=== PATIENT | female | born 1995 | race African-American/Black ===

== ENCOUNTER 2017-08-22 10:10 | Emergency (ER) | payer BC ==
[2017-08-22 11:01] LABS: BILIRUBIN,URINE NEGATIVE (NEG); CLARITY,URINE CLEAR; COLOR,URINE AMBER; GLUCOSE,URINE NEGATIVE (NEG); NITRITE,URINE NEGATIVE (NEG); PH,URINE 6.5; PROTEIN,URINE NEGATIVE (NEG-TRACE)
[2017-08-22 11:14] LABS: BACTERIA,URINE FEW /HPF (0-FEW); RBC,URINE 0 /HPF (0-2); SQUAMOUS EPITHELIAL CELL,UR MANY /LPF
[2017-08-22 11:17] LABS: ADD MAN DIFF? NO
[2017-08-22 11:22] LABS: BASO # 0.1 x10^3/uL (0.0-0.2); BASO % 1 % (0-3); EOS # 0.1 x10^3/uL (0.0-0.7); EOS % 1 % (0-3); HEMOGLOBIN 10.1 g/dL (12.0-15.5); LYMPH # 1.9 x10^3/uL (1.0-4.8); LYMPH % 20 % (24-48); MEAN CORPUSCULAR HEMOGLOBIN 31 pg (25-35); MEAN CORPUSCULAR HGB CONC 34 g/dL (31-37); MEAN CORPUSCULAR VOLUME 93 fL (79-100); MONO # 0.5 x10^3/uL (0.0-1.1); MONO % 5 % (0-9); NEUT % 74 % (31-73); PLATELET COUNT 309 x10^3/uL (140-400); RED BLOOD COUNT 3.24 x10^6/uL (3.50-5.40); RED CELL DISTRIBUTION WIDTH 12.8 % (11.5-14.5); WHITE BLOOD COUNT 9.6 x10^3/uL (4.0-11.0)
[2017-08-22 11:26] LABS: ANION GAP 12 (6-14); BLOOD UREA NITROGEN 11 mg/dL (7-20); BUN/CREATININE RATIO 22 (6-20); CARBON DIOXIDE 22 mmol/L (21-32); CHLORIDE 104 mmol/L (98-107); CREATININE 0.5 mg/dL (0.6-1.0); GFR 188.5; GLUCOSE 90 mg/dL (70-99); POTASSIUM 3.5 mmol/L (3.5-5.1); SODIUM 138 mmol/L (136-145)
[2017-08-22 11:32] LABS: ALBUMIN 2.9 g/dL (3.4-5.0); ALBUMIN/GLOBULIN RATIO 0.7 (1.0-1.7); ALK PHOS 52 U/L (46-116); ALT (SGPT) 14 U/L (14-59); AST (SGOT) 14 U/L (15-37); TOTAL BILIRUBIN 0.3 mg/dL (0.2-1.0); TOTAL PROTEIN 7.1 g/dL (6.4-8.2)
== END 2017-08-22 12:17 | disposition home or self-care (01) ==
LOC: ER 10:10
DX: O20.9 Hemorrhage in early pregnancy, unspecified (principal); O99.342 Other mental disorders complicating pregnancy, second trimester; F32.9 Major depressive disorder, single episode, unspecified; Z3A.18 18 weeks gestation of pregnancy; Z91.048 Other nonmedicinal substance allergy status
CPT/HCPCS: 36415; 76805; 76817; 80053; 81001; 85025; 87086; 99285-25

== ENCOUNTER 2017-09-28 18:26 | Emergency (ER) | payer SELFPAY, BC | END 2017-09-28 19:55 | disposition home or self-care (01) | LOC: ER 18:26 | DX: O99.512 Diseases of the respiratory system complicating pregnancy, second trimester (principal); O99.342 Other mental disorders complicating pregnancy, second trimester; J32.0 Chronic maxillary sinusitis; F32.9 Major depressive disorder, single episode, unspecified; Z91.048 Other nonmedicinal substance allergy status; Z3A.21 21 weeks gestation of pregnancy | CPT/HCPCS: 99283 ==

== ENCOUNTER 2017-11-02 10:20 | Observation (INO) | payer OTHER ==
[2017-11-02 10:44] LABS: BILIRUBIN,URINE NEGATIVE (NEG); CLARITY,URINE CLEAR; COLOR,URINE YELLOW; GLUCOSE,URINE NEGATIVE (NEG); NITRITE,URINE NEGATIVE (NEG); PROTEIN,URINE NEGATIVE (NEG-TRACE)
[2017-11-02 10:53] LABS: SQUAMOUS EPITHELIAL CELL,UR MOD /LPF
[2017-11-02 10:54] LABS: BACTERIA,URINE FEW /HPF (0-FEW); RBC,URINE OCC /HPF (0-2)
[2017-11-02] MEDS: HYDROcodone/APAP 5/325MG 1 TAB TABLET PO (11:22)
== END 2017-11-02 11:40 | disposition home or self-care (01) ==
LOC: 3 SO LND 10:20
DX: O26.893 Other specified pregnancy related conditions, third trimester (principal); M54.9 Dorsalgia, unspecified; Z3A.29 29 weeks gestation of pregnancy
CPT/HCPCS: 81001; G0379

== ENCOUNTER → 2017-11-22 | Outpatient (CLI) | payer OTHER | END | disposition home or self-care (01) | LOC: KCIC US 13:17 | DX: O26.843 Uterine size-date discrepancy, third trimester (principal); Z3A.32 32 weeks gestation of pregnancy | CPT/HCPCS: 76805 ==

== ENCOUNTER 2018-05-24 14:51 | Emergency (ER) | payer SELFPAY ==
[~2018-05-24] VITALS: Ht 157.5 cm; Wt 66.7 kg
[~2018-05-24 14:51] MED LIST: AZIT250T6 PO; DOCU-109 PO; FERR325T72 PO; IBUP800T19 PO; OXYC1TAB7 PO
[2018-05-24 15:12] VITALS: BP 121/64
[2018-05-24] MEDS ORDERED: IBUPROFEN 400 MG TABLET. PO ONE (15:30)
[2018-05-24] MEDS ORDERED: ACETAMINOPHEN 500 MG TABLET PO ONE (15:30)
--- NOTE | 2018-05-24 16:06 | PHYS DOC ---
Past Medical History Past Medical History: No Pertinent History, Depression Past Surgical History: Alcohol Use: None Drug Use: None Adult General Chief Complaint Chief Complaint: FEVER HPI HPI Patient is a 23 year old female with history of depression who presents today complaining of fever cough and nasal congestion and body aches and a mild generalized headache that has been going on intermittently for 4 days. Patient denies any chance she is . Denies any nausea vomiting. Denies any abdominal pain. Denies any neck pain, denies any nuchal rigidity. Review of Systems Review of Systems Constitutional: Reports fever and body aches Eyes: Denies change in visual acuity, redness, or eye pain [] HENT: Reports nasal congestion, denies sore throat [] Respiratory: Reports cough, denies shortness of breath [] Cardiovascular: No additional information not addressed in HPI [] GI: Denies abdominal pain, nausea, vomiting, bloody stools or diarrhea [] : Denies dysuria or hematuria [] Musculoskeletal: Denies back pain or joint pain [] Integument: Denies rash or skin lesions [] Neurologic: Reports headache, denies focal weakness or sensory changes [] All other systems were reviewed and found to be within normal limits, except as documented in this note. Current Medications Current Medications Current Medications Medications (Trade) Dose Ordered Sig/[facility] Start Time Stop Time Status Last Admin Dose Admin Acetaminophen (Tylenol) 1,000 mg 1X ONCE 05/24/18 15:30 05/24/18 15:32 DC 05/24/18 15:42 1,000 MG Ibuprofen (Motrin) 800 mg 1X ONCE 05/24/18 15:30 05/24/18 15:32 DC Allergies Allergies Allergies Coded Allergies Type Severity Reaction Last Updated Verified nickel Allergy Intermediate RASH 08/22/17 Yes Physical Exam Physical Exam Constitutional: Well developed, well nourished, no acute distress, non-toxic appearance. [] HENT: Normocephalic, atraumatic, bilateral external ears normal, oropharynx moist, no oral exudates, nose normal. [] Eyes: PERRLA, EOMI, conjunctiva normal, no discharge. [] Neck: Normal range of motion, no tenderness, supple, no stridor. Negative meningeal signs. Cardiovascular:Heart rate regular rhythm, no murmur [] Lungs & Thorax: Bilateral breath sounds clear to auscultation [] Abdomen: Bowel sounds normal, soft, no tenderness, no masses, no pulsatile masses. [] Skin: Warm, dry, no erythema, no rash. [] Back: No tenderness, no CVA tenderness. [] Extremities: No tenderness, no cyanosis, no clubbing, ROM intact, no edema. [] Neurologic: Alert and oriented X 3, normal motor function, normal sensory function, no focal deficits noted. [] Psychologic: Affect normal, judgement normal, mood normal. [] Current Patient Data Vital Signs Vital Signs Date Time Temp Pulse Resp B/P (MAP) Pulse Ox O2 Delivery O2 Flow Rate FiO2 05/24/18 15:12 103.0 119 24 121/64 (83) 100 Room Air 103.0 Lab Values Laboratory Tests Test 05/24/18 15:21 05/24/18 15:40 05/24/18 15:43 Influenza Type A Antigen Negative (NEGATIVE) Influenza Type B Antigen Negative (NEGATIVE) Urine Collection Type Unknown Urine Color Yellow Urine Clarity Clear Urine pH 7.5 Urine Specific [place] 1.025 Urine Protein Negative mg/dL (NEG-TRACE) Urine Glucose (UA) Negative mg/dL (NEG) Urine Ketones (Stick) Negative mg/dL (NEG) Urine Blood Trace (NEG) Urine Nitrite Negative (NEG) Urine Bilirubin Negative (NEG) Urine Urobilinogen Dipstick 4.0 mg/dL (0.2 mg/dL) Urine Leukocyte Esterase Negative (NEG) Urine RBC >40 /HPF (0-2) Urine WBC 0 /HPF (0-4) Urine Squamous Epithelial Cells Many /LPF Urine Bacteria 0 /HPF (0-FEW) Urine Mucus Marked /LPF POC Urine HCG, Qualitative Hcg negative (Negative) EKG EKG [] Radiology/Procedures Radiology/Procedures []PROCEDURE: CHEST PA & LATERAL Chest, PA and Lateral: Technique: PA and lateral views of the chest were obtained. History: Cough. Comparison: None. Findings: The heart and pulmonary vasculature appear within normal limits. The lungs are clear. The pleural margins are clear. Impression: No acute chest process is seen. Electronically signed by: Anjum Cedeno MD (05/24/2018 4:21 PM) [id number] DICTATED and SIGNED BY: ANJUM CEDENO MD DATE: 05/24/18 1618 Course & Med Decision Making Course & Med Decision Making Pertinent Labs and Imaging studies reviewed. (See chart for details) This is a 23-year-old female patient presenting to the ED today complaining of fever cough and nasal congestion and body aches and a headache for 4 days. Temperature 103.1 with a heart rate in the 116s on arrival to the ED, patient has no neck pain, negative meningeal signs. Patient already took ibuprofen, was given Tylenol. Negative influenza A or B. Negative urine analysis, chest x-ray interpreted by radiologist is negative for any acute findings. Patient's symptoms are likely viral. She was instructed to go home rest, push fluids, Tylenol every 4 hours and Motrin every 6 hours. Instructed to follow-up with her own memory care doctor in the course of this week or next week. Provided return precautions and discharged in stable condition. Dragon Disclaimer Dragon Disclaimer This electronic medical record was generated, in whole or in part, using a voice recognition dictation system. Departure Departure Impression: Primary Impression: Fever Additional Impressions: Cough URI (upper respiratory infection) Disposition: 01 HOME, SELF-CARE Condition: STABLE Referrals: GYPSY MCCULLOUGH Jr, MD (PCP) Follow-up with your primary care doctor in one week Patient Instructions: Cough, Child, Fever, Child, Upper Respiratory Infection, Child Additional Instructions: You were evaluated in the emergency room your symptoms are consistent with a viral illness. We highly recommend you take Tylenol every 4 hours, Motrin every 6 hours, rest, push fluids, maintain good hand hygiene and follow-up with your own doctor in the course of this week or next week. Please come back to the emergency room at any point symptoms worsen. Problem Qualifiers Primary Impression: Fever Fever type: unspecified Qualified Codes: R50.9 - Fever, unspecified Additional Impressions: URI (upper respiratory infection) URI type: unspecified URI Qualified Codes: J06.9 - Acute upper respiratory infection, unspecified [employer] May 24, 2018 16:06
[2018-05-24 16:07] LABS: BILIRUBIN,URINE NEGATIVE (NEG); CLARITY,URINE CLEAR; COLOR,URINE YELLOW; NITRITE,URINE NEGATIVE (NEG); PH,URINE 7.5; PROTEIN,URINE NEGATIVE (NEG-TRACE)
[2018-05-24 16:14] LABS: SQUAMOUS EPITHELIAL CELL,UR MANY /LPF
[2018-05-24 16:15] LABS: BACTERIA,URINE 0 /HPF (0-FEW); RBC,URINE >40 /HPF (0-2); WBC,URINE 0 /HPF (0-4)
--- NOTE | 2018-05-24 16:25 | RAD ---
Chest, PA and Lateral: Technique: PA and lateral views of the chest were obtained. History: Cough. Comparison: None. Findings: The heart and pulmonary vasculature appear within normal limits. The lungs are clear. The pleural margins are clear. Impression: No acute chest process is seen. Electronically signed by: Anjum Cedeno MD (05/24/2018 4:21 PM) [id number]
[2018-05-24 16:40] LABS: INFLUENZA A PATIENT NEGATIVE (NEGATIVE); INFLUENZA B PATIENT NEGATIVE (NEGATIVE)
== END 2018-05-24 16:58 | disposition home or self-care (01) ==
LOC: ER 14:51
DX: J06.9 Acute upper respiratory infection, unspecified (principal); F32.9 Major depressive disorder, single episode, unspecified; Z88.8 Allergy status to other drugs, medicaments and biological substances
CPT/HCPCS: 71046; 81001; 81025; 87804; 99284

== ENCOUNTER 2018-12-13 15:26 | Observation (INO) | payer SELFPAY ==
[2018-12-13] MEDS ORDERED: IV RINGERS,LACTATED 1000ML 1,000 ML IV PRN (15:45)
[2018-12-13 16:18] LABS: BARBITURATES NEG (NEG); BENZODIAZEPINES NEG (NEG); CANNABINOIDS NEG (NEG); COCAINE NEG (NEG); METHADONE NEG (NEG); OPIATES NEG (NEG); PHENCYCLIDINE NEG (NEG)
[2018-12-13 16:19] LABS: AMPHETAMINE/METHAMPHETAMINE NEG (NEG)
[2018-12-13 16:31] LABS: BILIRUBIN,URINE NEGATIVE (NEG); CLARITY,URINE CLEAR; COLOR,URINE YELLOW; NITRITE,URINE NEGATIVE (NEG); PROTEIN,URINE NEGATIVE (NEG-TRACE)
[2018-12-13 16:51] LABS: BACTERIA,URINE FEW /HPF (0-FEW); RBC,URINE 0 /HPF (0-2); SQUAMOUS EPITHELIAL CELL,UR OCC /LPF; WBC,URINE OCC /HPF (0-4)
--- NOTE | 2018-12-13 17:22 | RAD ---
PREG MORE THAN OR EQ TO 14 WKS History: Gestational age evaluation, no care Comparison: None. Findings: Multiple sonographic images of the uterus are submitted. There is a single intrauterine fetus in breech presentation. Cervix measured 4.1 cm in length. There is anterior placenta. Amniotic fluid volume is subjectively within normal limits. cardiac activity was demonstrated, 139 bpm. Cisterna magna measures 0.36 cm. There is four-chamber view of heart. Reportedly 2 upper and lower extremities were visualized. stomach was visualized. 2 kidneys were visualized. There is visualization of bladder. There is apparently a midline cord insertion although suboptimally demonstrated on this exam. There is reportedly a three-vessel cord also suboptimally demonstrated on submitted images. No obvious abnormality is demonstrated of the visualized spine. Maternal adnexal regions are not demonstrated. Biometry data are as follows: Biparietal diameter 5.4 cm corresponds with 22 weeks 3 days Head circumference 20.62 cm corresponds with 22 weeks 5 days Abdominal circumference 18.5 cm corresponds with 23 weeks 2 days Femur length 3.87 cm corresponds with 22 weeks 3 days Adjusted ultrasound age 22 weeks 5 days with estimated delivery date by ultrasound 04/13/2019 LMP age 22 weeks 4 days with estimated delivery date of 04/14/2019 Estimated weight 542 g +/- 80 g, corresponds with 43rd percentile HC/AC ratio within normal limits 1.11 Impression: 1. There is a single viable intrauterine fetus in breech presentation, adjusted ultrasound age 22 weeks 5 days with estimated delivery date of 04/13/2019. Electronically signed by: Jono Sharma MD (12/13/2018 5:19 PM) [facility]
== END 2018-12-13 17:00 | disposition home or self-care (01) ==
LOC: 3 SO LND 15:26
PROVIDERS: ADMIT Obstetrics & Gynecology; ATTEND Obstetrics & Gynecology
DX: O26.852 Spotting complicating pregnancy, second trimester (principal); Z3A.22 22 weeks gestation of pregnancy
CPT/HCPCS: 76805; 80307; 81001; G0378; G0379

== ENCOUNTER 2019-02-20 00:18 | Inpatient (IN) | payer MEDICAID ==
[2019-02-20] VITALS (7 sets, daily range): BP systolic 97–115; BP diastolic 47–63
[~2019-02-20] VITALS: Ht 157.5 cm; Wt 86.2 kg
[2019-02-20] MEDS ORDERED: ACETAMINOPHEN 500 MG TABLET PO PRN (00:30)
[2019-02-20] MEDS ORDERED: ACETAMINOPHEN 325 MG TABLET. PO PRN ×2 (00:30→02:45)
[2019-02-20 00:45] LABS: BILIRUBIN,URINE NEGATIVE (NEG); CLARITY,URINE CLEAR; COLOR,URINE YELLOW; NITRITE,URINE NEGATIVE (NEG); PROTEIN,URINE 30 mg/dL (NEG-TRACE)
[2019-02-20 00:52] LABS: BACTERIA,URINE 0 /HPF (0-FEW); BARBITURATES NEG (NEG); BENZODIAZEPINES NEG (NEG); CANNABINOIDS NEG (NEG); COCAINE NEG (NEG); METHADONE NEG (NEG); OPIATES NEG (NEG); PHENCYCLIDINE NEG (NEG); RBC,URINE TNTC /HPF (0-2); SQUAMOUS EPITHELIAL CELL,UR FEW /LPF
[2019-02-20 00:53] LABS: AMPHETAMINE/METHAMPHETAMINE NEG (NEG)
[2019-02-20] MEDS ORDERED: MAGNESIUM SULFATE 4GM 100 ML IV ONE (02:00)
--- NOTE | 2019-02-20 02:05 | RAD ---
Obstetrical ultrasound limited HISTORY: female with bleeding. Images provided demonstrate an anterior placenta. Structure labeled cervix measured with a length of 5.5 cm although it is uncertain how much of this is the cervix. There is lobulation of the inferior margin of the placenta which appears to cover the cervical internal os based on the annotations for what is labeled as the cervix. Intrauterine fetus with breech position present. heart rate 149 bpm. Estimated sonographic gestational age 34 weeks 2 days and date of delivery April 01, 2019. Biparietal diameter 9.05 cm, gestational age 36 weeks 5 days. Head circumference 31.47 cm, gestational age 35 weeks 2 days. Abdominal circumference 28.26 cm, gestational age 32 weeks 2 days. Femur length 6.30 cm, gestational age 32 weeks 4 days. Head/abdominal circumference ratio 1.1. Estimated weight 2110 g. Amniotic fluid index 5.9 cm. IMPRESSION: Single living intrauterine fetus breech position estimated sonographic gestational age of 34 weeks 2 days. Anterior placenta, there is a suspected placenta previa covering the cervical internal os as described above. See discussion above. Electronically signed by: Jesús Barakat MD (02/20/2019 2:03 AM) [facility]
[2019-02-20] MEDS: IV RINGERS,LACTATED 1000ML 1,000 ML IV SCH ×4 (02:06→23:59)
[2019-02-20 02:07] LABS: BASO % 0 % (0-3); EOS # 0.1 x10^3/uL (0.0-0.7); EOS % 1 % (0-3); HEMATOCRIT 27.9 % (36.0-47.0); LYMPH # 2.8 x10^3/uL (1.0-4.8); LYMPH % 26 % (24-48); MEAN CORPUSCULAR HEMOGLOBIN 26 pg (25-35); MEAN CORPUSCULAR HGB CONC 32 g/dL (31-37); MEAN CORPUSCULAR VOLUME 80 fL (79-100); MONO # 0.7 x10^3/uL (0.0-1.1); MONO % 7 % (0-9); NEUT # 7.1 x10^3/uL (1.8-7.7); NEUT % 67 % (31-73); PLATELET COUNT 283 x10^3/uL (140-400); RED BLOOD COUNT 3.48 x10^6/uL (3.50-5.40); RED CELL DISTRIBUTION WIDTH 14.9 % (11.5-14.5); WHITE BLOOD COUNT 10.7 x10^3/uL (4.0-11.0)
[2019-02-20] MEDS ORDERED: BETAMET ACET&NA PHOS 30 MG/5 ML VIAL. IM ONE (02:30)
[2019-02-20] MEDS ORDERED: PROPOFOL 20 ML IV ONE (02:34)
[2019-02-20] MEDS ORDERED: SUCCINYLCHOLINE 200 MG/10 ML VIAL. ONE (02:34)
--- NOTE | 2019-02-20 02:35 | PDOC1 ---
OB - History Hx of Present Care: None Ultrasounds: Abnormal US findings (placenta previa) Obstetrical Complications: Other (placenta previa with active bleeding) Medical Complications: Other (anemia) Past Family/Social History * Past Medical, Surgical, Family and Obstetric Histories reviewed from chart. Blood Type: Unknown Rubella: Unknown RPR/VDRL: Unknown GBS Status: Unknown HBsAG: Unknown OB - Chief Complaint & HPI Date of Admission: Date of Admission: Feb 20, 2019 at 00:18 Chief Complaint/History : 3 Para: 2 EGA: 32 Reason for admission: vaginal bleeding, other (placenta previa) Indication for : desires repeat Admission Nurse Assessment Rev: Yes OB - Admission Exam Physical Exam HEENT: Normal Heart: Regular Rate Lungs: Clear Abdomen: Gravid, Non tender, Soft Extremities: Edema Reflexes: Normal Cervical Dilatation: None Effacement: 0% Station: Ballotable Membranes: Intact Heart Rate: Normal Accelerations: Accelerations Present Decelerations: No decelerations Contractions on Admission: >10 Minutes Apart Intensity: Mild Text A: 32 wks IUP Breech Complete placenta previa: active bleeding confirmed with sterile speculum exam No care P: Admit for emergent repeat c/s. Magnesium sulfate and corticosteroids. GYPSY MCCULLOUGH Jr, MD Feb 20, 2019 02:35
[2019-02-20] MEDS ORDERED: ONDANSETRON PF 4 MG/2 ML VIAL. ONE (02:38)
[2019-02-20] MEDS ORDERED: fentaNYL PF VIAL 100 MCG/2 ML VIAL ONE (02:38)
[2019-02-20] MEDS ORDERED: DEXAMETHASONE SOD PHOS 4 MG/ML VIAL ONE (02:38)
[2019-02-20] MEDS ORDERED: OXYTOCIN 10 UNIT/ML VIAL. ONE ×2 (02:38→03:18)
[2019-02-20] MEDS ORDERED: FAMOTIDINE 20 MG/2 ML VIAL ONE (02:41)
[2019-02-20] MEDS ORDERED: METOCLOPRAMIDE HCL 10 MG/2 ML VIAL. ONE (02:41)
[2019-02-20] MEDS ORDERED: diphenhydrAMINE HCL 25 MG CAPSULE PO PRN (02:45)
[2019-02-20] MEDS ORDERED: MAGNESIUM SULFATE 20GM 500 ML IV SCH (03:00)
[2019-02-20] MEDS ORDERED: KETAMINE HCL IN NACL, ISO-OSM 50 MG/5 ML SYRINGE ONE (03:00)
[2019-02-20] MEDS ORDERED: ceFAZolin SODIUM 1 GM VIAL ONE (03:19)
[2019-02-20] MEDS ORDERED: SEVOFLURANE 31 TO 60 MINUTES. IH ONE (03:40)
--- NOTE | 2019-02-20 04:04 | PDOC4 ---
OB Operative Note Date: Feb 20, 2019 PRE OP DIAGNOSIS: Previoujs C- section (32 wks IUP, Breech, Complete Placenta Previa, No PNC) POST OP DIAGNOSIS: Other (Same + Placenatal abruption) OPERATION PERFORMED: R [facility] Surgeon Dr. Cardona Anesthesia: Gen Blood Loss 600 ml Specimen placenta and OB Findings: Position (Breech), Sex (Female), (2/8), Weight (1910 Gram), Nuchal Cord (x1) Complications Placenta abruption 35% GYPSY CARDONA Jr, MD Feb 20, 2019 04:04
[2019-02-20] MEDS ORDERED: IV NORMAL SALINE 1000ML BAG 1,000 ML IV SCH (04:05)
[2019-02-20] MEDS ORDERED: MAG HYDROX/ALUMINUM HYD/SIMETH 30 ML ORAL.SUSP PO PRN (04:15)
[2019-02-20] MEDS ORDERED: SIMETHICONE 80 MG TAB.CHEW PO PRN (04:15)
[2019-02-20] MEDS ORDERED: diphenhydrAMINE ORAL ELIXIR 12.5 MG/5 ML ML PO PRN (04:15)
[2019-02-20] MEDS ORDERED: ZOLPIDEM 5 MG TABLET. PO PRN (04:15)
[2019-02-20] MEDS ORDERED: OXYTOCIN 30 UNIT/500 ML PREMIX 500 ML IV PRN (04:15)
[2019-02-20] MEDS ORDERED: 0.9 % SODIUM CHLORIDE 10 ML DISP.SYRIN. IV PRN (04:15)
[2019-02-20] MEDS ORDERED: NALOXONE 0.4 MG/ML VIAL. IV PRN (04:15)
[2019-02-20] MEDS ORDERED: KETOROLAC 30 MG/ML VIAL. IV PRN (04:15)
[2019-02-20] MEDS ORDERED: ONDANSETRON PF 4 MG/2 ML VIAL. IV PRN (04:15)
[2019-02-20 04:25] LABS: HEMATOCRIT 27.1 % (36.0-47.0); HEMOGLOBIN 8.6 g/dL (12.0-15.5)
--- NOTE | 2019-02-20 04:58 | OP ---
DATE OF SURGERY: PREOPERATIVE DIAGNOSES: 1. A 32 weeks' intrauterine . 2. No care. 3. Previous section x 2. 4. Breech presentation. 5. Complete placenta previa with active bleeding. POSTOPERATIVE DIAGNOSES: 1. A 32 weeks' intrauterine . 2. No care. 3. Previous section x 2. 4. Breech presentation. 5. Complete placenta previa with active bleeding. 6. Placental abruption of about 35%. PROCEDURE: Repeat low transverse section. SURGEON: Gypsy Cardona MD. ANESTHESIA: GETA. ESTIMATED BLOOD LOSS: 600 mL. COMPLICATIONS: Placental abruption of 35%. FINDINGS: Viable female , Apgars 2 and 8, 3-vessel cord placenta delivered under gentle traction. Nuchal cord x 1, weight 1910 grams. SUMMARY: A 23-year-old 3, para 2 at 32 weeks, presented to Labor and Delivery with complaints of vaginal bleeding and passing large blood clots. The patient was evaluated with sterile speculum and indicated active bleeding from the cervical os. The sonogram indicated breech presentation with complete placenta previa. The patient was counseled on risks, benefits and expectations of repeat section due to emergency secondary to placenta previa with active bleeding. The patient was provided with one dose of betamethasone prior to procedure. The patient was counseled on risks, benefits and expectations and voices clear understanding to proceed. DESCRIPTION OF PROCEDURE: The patient was taken to surgery suite and placed in dorsal supine position. She was prepped with ChloraPrep and draped in sterile fashion. After adequate anesthesia, Pfannenstiel skin incision was made with scalpel down to and through the fascia. The fascia was extended laterally using curved Nuno scissors. The superior edge of the fascia was grasped with two Geena clamps and dissected free of the abdominal rectus muscles using blunt dissection along with curved Nuno scissors. The same process took place inferiorly. The abdominal rectus muscles were dissected at the midline using curved Nuno scissors. Peritoneum was entered with curved Nuno scissors and this incision was extended inferiorly. The Malvin ring retractor was placed. Bladder flap was created using sharp dissection with Metzenbaum scissors and British pickups. A low transverse hysterotomy incision was made with scalpel down to the amniotic sac. At this time, there was about 75 mL blood clot that extruded from the hysterotomy incision. Amniotomy was performed with Allis clamps. With aid of fundal pressure, the 's feet were grasped and delivered. The was delivered down to the buttocks and she was wrapped with a moist lap. With additional fundal pressure, the was delivered down to the subscapular region, which at this time, the right arm was flexed and swept across the chest and delivered. Infant was turned to 180 degrees and the left arm was flexed and swept across the chest. With additional fundal pressure, the 's head was delivered in atraumatic manner. Nuchal cord x 1 was visualized and reduced. The was then suctioned with bulb syringe orally and nasally, umbilical cord was clamped twice and cut and viable female infant was handed to waiting nursing staff. Umbilical cord blood as well as arterial pH were then obtained. Three-vessel cord placenta was delivered under gentle traction. The uterus was exteriorized, cleared of clot and debris with a moist lap. Hysterotomy incision was reapproximated with #1 Vicryl suture in running locked fashion. A second layer of 1 Vicryl suture was utilized in a running locked fashion as well for better hemostasis. A [id number] suture was placed in the right apex of the hysterotomy incision for better hemostasis. The uterus palpated firm. Fallopian tubes and ovaries appeared normal bilaterally. Posterior cul-de-sac was cleared of clot and debris with moist lap. The uterus was then returned to the abdomen. The pericolic gutters were cleared of clot and debris with a moist lap. Hysterotomy incision was reviewed and was hemostatic. The Malvin ring retractor was removed. The peritoneum was reapproximated using #1 Vicryl suture in running fashion. Fascia was reapproximated using Stratafix. Skin was reapproximated using 4-0 Vicryl suture in subcuticular manner. The patient tolerated the procedure well and was taken to recovery room in stable condition. Sponge and needle count correct x 3. GYPSY CARDONA MD DR: MARY/rogers JOB#: [id number] / [id number]
[2019-02-20] MEDS: FERROUS SULFATE 325 MG TABLET. PO SCH ×2 (08:00→23:09)
[2019-02-20] MEDS: IBUPROFEN 400 MG TABLET. PO PRN ×3 (15:41→22:08)
[2019-02-20] MEDS: oxyCODONE/APAP 5/325 1 TAB TABLET PO PRN ×3 (15:42→22:07)
[2019-02-20] MEDS: DOCUSATE SODIUM 100 MG CAPSULE. PO PRN (21:23)
[2019-02-21 00:06] VITALS: BP 90/53
[2019-02-21 04:45] LABS: BASO % 0 % (0-3); EOS % 0 % (0-3); HEMATOCRIT 24.2 % (36.0-47.0); HEMOGLOBIN 7.7 g/dL (12.0-15.5); LYMPH # 2.4 x10^3/uL (1.0-4.8); LYMPH % 15 % (24-48); MEAN CORPUSCULAR HEMOGLOBIN 26 pg (25-35); MEAN CORPUSCULAR HGB CONC 32 g/dL (31-37); MEAN CORPUSCULAR VOLUME 81 fL (79-100); MONO # 0.9 x10^3/uL (0.0-1.1); MONO % 6 % (0-9); NEUT # 12.7 x10^3/uL (1.8-7.7); NEUT % 79 % (31-73); PLATELET COUNT 269 x10^3/uL (140-400); RED BLOOD COUNT 2.99 x10^6/uL (3.50-5.40); WHITE BLOOD COUNT 16.1 x10^3/uL (4.0-11.0)
[2019-02-21] MEDS ORDERED: IBUPROFEN 400 MG TABLET. PO PRN (04:45)
[2019-02-21] MEDS: oxyCODONE/APAP 5/325 1 TAB TABLET PO PRN (05:17)
[2019-02-21 05:24] VITALS: BP 103/49
[2019-02-21] MEDS: FERROUS SULFATE 325 MG TABLET. PO SCH (07:42)
[2019-02-21] MEDS: DOCUSATE SODIUM 100 MG CAPSULE. PO PRN (07:42)
--- NOTE | 2019-02-21 07:57 | PDOC3 ---
OB DISCHARGE SUMMARY DATE OF ADMISSION: 02/20/19 DATE OF DISCHARGE: 02/21/19 REASON FOR ADMISSION: Vaginal bleeding, section INTRAPARTUM PROCEDURES: : Low Cerv Trans PROBLEM LIST AT DISCHARGE Problems Medical Problems: (1) Complete placenta previa with hemorrhage, third trimester Status: Acute DISCHARGE DIAGNOSIS: Antepartum Bleeding (placental abruption), Placenta Previa DISCHARGE INFORMATION: Activity (ad deniz), Diet (regular), Instructions (pelvic rest x 6 wks, no driving x 2 wks, no lifting > 20 lbs. x 4 wks) HOSPITAL COURSE 32 wks IUP with placenta previa, vaginal bleeding and placental abruption delivered via section without complications. GYPSY MCCULLOUGH Jr, MD Feb 21, 2019 07:57
[2019-02-21] MEDS ORDERED: OXYC1TAB7 PO (08:00)
[2019-02-21] MEDS ORDERED: IBUP800T19 PO (08:00)
[2019-02-21] MEDS ORDERED: DOCU-109 PO (08:00)
[2019-02-21] MEDS ORDERED: FERR325T72 PO (08:00)
--- NOTE | 2019-02-21 08:00 | DISCH ---
DISCHARGE INSTRUCTIONS Condition on Discharge Condition on Discharge: Stable Activity After Discharge Activity Instructions for Disc: Activity as tolerated Lifting Instructions after Dis: No heavy lifting Driving Instructions after Dis: No driving for 2 weeks Diet after Discharge Diet after Discharge: Regular Contacting the DRTrent after DC Call your doctor for: Concerns you may have Follow-Up Follow up with: Dr. Cardona in 2 wks GYPSY CARDONA Jr, MD Feb 21, 2019 08:00
--- NOTE | 2019-02-21 08:30 | NUR ---
home instructions gone over with pt and signed
[2019-02-21 09:00] VITALS: BP 112/61
[2019-02-21 13:22] LABS: % BANDS 1 % (0-9); % LYMPHS 8 % (24-48); % MONOS 3 % (0-10); % SEGS 88 % (35-66); PLT ESTIMATE ADEQUATE (ADEQUATE)
--- NOTE | 2019-02-23 15:07 | PATHOLOGY ---
[facility] Accession Number: [id number] . 01 Material submitted: . placenta - PLACENTA WITH CORD . 01 Clinical history: . Gestational age 32.4 weeks; placenta previa; bleeding; abruption proximally 35%; abruptio placenta with EDC of 04/13/19; no care; delivered by stat for vaginal bleeding/abruption; a nuchal cord around neck x1, loose; Apgars 2, 8, 8; transferred to NICU; prematurity . 02 Diagnosis: Placenta, section: - Third trimester placenta, 375 grams. - Attached trivascular umbilical cord and membranes without significant inflammation. - Acute decidualitis, mild. - Placental parenchyma with focal abruption (6.5 x 3.5 cm). (SKM:asher; 02/23/2019) MBR 02/23/2019 1233 Local . 02 Electronically signed: . Kota Aviles MD, Pathologist NPI- [id number] . 01 Gross description: . The specimen is received in formalin, labeled "Guilherme Stinson, placenta". Received is a herrera placenta with attached membranes and umbilical cord with a trimmed placental weight of 375 g and measuring 15.4 x 15.2 x 3.0 cm in greatest dimensions. The membranes are pale coreas and translucent in appearance, and the site of membrane rupture is at the placental margin. The surface is intact displaying a normal arborizing vasculature pattern, as well as focal fibrin deposition. The trivascular umbilical cord measures 67.3 cm in length by up to 2.8 cm in diameter and inserts eccentrically, 3.8 cm from the closest placental margin. The umbilical cord is pale coreas and edematous in appearance with minimal helical twisting. The maternal surface is slightly disrupted near one edge (suggestive of abruption) measuring approximately 6.5 x 3.5 cm, but appears otherwise intact and complete; a slight amount of adherent blood coagulum is seen on the surface. Sectioning reveals red-brown cut surfaces with no grossly distinct nodules or lesions. The specimen is submitted representatively as follows: . A1 umbilical cord and surface vessels A2 umbilical cord and membrane roll A3 full-thickness placental cross-section through intact maternal surface A4 full-thickness possible cross-section through area of disruption (suggestive of abruption) (CAA; 02/22/2019) QAC/QAC 02/23/2019 1250 Local . 02 Pathologist provided ICD-10: O43.893, Z37.0, Z3A.32 . 02 CPT . 568870 Specimen Comment: A courtesy copy of this report has been sent to Specimen Comment: [phone]. Specimen Comment: Report sent to Performed at: 01 [facility] [address], [place], [place] [id number] MD Cam Gallardo MD Phone: [phone] Performed at: 02 [facility] [address], [place] [id number] MD Juan Collins MD Phone: [phone]
== END 2019-02-21 09:57 | disposition home or self-care (01) | DRG 786 ==
LOC: 3 SO LND 00:18 → OBSVTOIN 00:18 → 3 SO LND 04:09 → 3 NORTH 08:04
PROVIDERS: ADMIT Obstetrics & Gynecology; ATTEND Obstetrics & Gynecology
PROC: 10D00Z1 Extraction of Products of Conception, Low, Open Approach (ICD-10-PCS; principal; 2019-02-20)
DX: O45.93 Premature separation of placenta, unspecified, third trimester (principal); O44.13 Complete placenta previa with hemorrhage, third trimester; O32.1XX0 Maternal care for breech presentation, not applicable or unspecified; O69.81X0 Labor and delivery complicated by cord around neck, without compression, not applicable or unspecified; Z3A.32 32 weeks gestation of pregnancy; Z37.0 Single live birth
CPT/HCPCS: 36415; 76815; 80307; 81001; 85007; 85014; 85018; 85025; 86592; 86703; 86762; 86850; 86900; 86901; 86920; 87340; 88307; G0378; J0330; J0690; J0702; J1100; J2405; J2590; J2704; J2765; J3010; J3475; J3490; J7120